=== PATIENT | male | born 1940 | race Caucasian/White ===

== ENCOUNTER → 2017-02-20 | Outpatient (CLI) | payer MEDICARE, BC ==
[~2017-02-20] MED LIST: ALPR0.5T PO; DICY10SO PO; MELOX; [UNRECOGNIZED DRUG - CODE] PO
--- NOTE | 2017-02-20 14:25 | RADRPT ---
PROCEDURE: US Carotids. CLINICAL INDICATION: bruit TECHNIQUE: Multiple sonographic of the carotid bifurcation region and vertebral arteries were obta ined utilizing gordillo scale, duplex and color-flow imaging. The images were reviewed on a PACS worksta tion. COMPARISON: No prior studies are available for comparison. FINDINGS: Evaluation of the right carotid bifurcation region reveals mild calcific atherosclerotic disease. Evaluation of the left carotid bifurcation region reveals mild calcific atherosclerotic disease. There is antegrade flow within the vertebral arteries bilaterally. RIGHT CAROTID MEASUREMENTS: Common Carotid Ezfama76.8 (cm/sec) Internal Carotid Artery - upkkffek42 (cm/sec) Internal Carotid Artery - mid67.7 (cm/sec) Internal Carotid Artery - mgrxfo21.7 (cm/sec) Internal Carotid/Common Carotid1.34 LEFT CAROTID MEASUREMENTS: Common Carotid Qlctnb36.5 (cm/sec) Internal Carotid Artery - memvpmlu78.6 (cm/sec) Internal Carotid Artery - mid63.5 (cm/sec) Internal Carotid Artery - zufgii30.7 (cm/sec) Internal Carotid/Common Carotid1.94 RPTAT: AA IMPRESSION: No evidence for hemodynamically significant stenosis in the bilateral internal carotid arteries - va lidated velocity measurements with angiographic measurements, velocity criteria are extrapolated fro m diameter data as defined by the Society of Radiologists in Ultrasound Consensus Conference Radiolo gy 2003; 229;340-346. This study does indirectly reference the measurement of the distal ICA diamet er as the denominator for stenosis measurement. Normal antegrade flow in the vertebral arteries bilaterally. .Sam Hackett MD, MD Date Time Electronically viewed and signed by .Sam Hackett MD, MD on 02/20/2017 14:25 .S/
--- NOTE | 2017-02-20 14:26 | RADRPT ---
PROCEDURE: US aorta. CLINICAL INDICATION: Screening for aortic aneurysm TECHNIQUE: Multiple sonographic images of the aorta and iliac vessels was obtained utilizing clement alverto, color-flow, compressive sonography and doppler imaging. The images were reviewed on a PACS wo [place]. COMPARISON: None. FINDINGS: The aorta is normal in caliber with no evidence of abdominal aortic aneurysm. There is normal Doppler flow in the aorta and iliac vessels. The proximal aorta measures 2.4 cm. The mid aorta measures 1.5 cm. The distal aorta measures 1.6 cm. The right iliac artery measures 1.2 cm. The left iliac artery measures 1.2 cm. RPTAT: AA IMPRESSION: No evidence of abdominal aortic aneurysm. .Sam Hackett MD, MD Date Time Electronically viewed and signed by .Sam Hackett MD, MD on 02/20/2017 14:26 .S/
--- NOTE | 2017-02-20 15:04 | RADRPT ---
PROCEDURE: US Lower extremity Venous. CLINICAL INDICATION: Bilateral lower extremity edema TECHNIQUE: Multiple sonographic images of the bilateral lower extremity deep venous system was obt ained utilizing grayscale, color-flow, compressive sonography and doppler imaging with augmentation. The images were reviewed on a PACS workstation. COMPARISON: US OT LOWER EXTREMITY 10/06/2014 FINDINGS: There is normal compressibility and flow within the bilateral common femoral, femoral , posterior ti bial and popliteal veins. The bilateral femoral veins are small. RPTAT: AA IMPRESSION: No sonographic evidence for deep venous thrombosis. Small bilateral femoral veins. .Sam Hackett MD, MD Date Time Electronically viewed and signed by .Sam Hackett MD, MD on 02/20/2017 15:04 .S/
--- NOTE | 2017-02-20 17:48 | RADRPT ---
PROCEDURE: XR Chest. CLINICAL INDICATION: Cough. TECHNIQUE: Two views. Frontal and lateral. COMPARISON: 03/17/2015. FINDINGS: There is mild scarring at the left lung base, unchanged. The lungs are otherwise clear. The heart size is normal. There is no pleural effusion. There is no pneumothorax. IMPRESSION: 1. Mild scarring at the left lung base, unchanged. 2. Otherwise normal chest x-ray. RPTAT: QQ .Lorenzo Martino MD, MD Date Time Electronically viewed and signed by .Lorenzo Martino MD, MD on 02/20/2017 17:47 .R/
== END | disposition home or self-care (01) ==
LOC: VAS 13:20
DX: Z12.11 Encounter for screening for malignant neoplasm of colon (principal); Z13.89 Encounter for screening for other disorder; I82.4Z3 Acute embolism and thrombosis of unspecified deep veins of distal lower extremity, bilateral; I65.22 Occlusion and stenosis of left carotid artery
CPT/HCPCS: 71020; 76770; 93880; 93970

== ENCOUNTER → 2017-09-03 | Outpatient (CLI) | END | disposition home or self-care (01) ==

== ENCOUNTER → 2018-03-04 | Outpatient (CLI) | END | disposition home or self-care (01) ==

== ENCOUNTER 2019-03-18 15:31 | Emergency (ER) | payer MEDICARE, BC ==
[~2019-03-18] VITALS: Ht 162.6 cm; Wt 80.0 kg
[2019-03-18 15:36] VITALS: BP 154/87; PULSE 89; RESP 18; Ht 162.6 cm; Wt 80.0 kg
== END 2019-03-18 20:45 | disposition left against medical advice (07) ==
LOC: E/R 15:31
DX: Z53.21 Procedure and treatment not carried out due to patient leaving prior to being seen by health care provider (principal)
CPT/HCPCS: 80053; 83690; 85025